=== PATIENT | female | born 1995 | race Two or more races ===

== ENCOUNTER 2017-11-04 10:01 | Emergency (ER) | payer OTHER ==
[~2017-11-04] VITALS: Ht 170.2 cm; Wt 78.9 kg
[2017-11-04] MEDS ORDERED: SODIUM CHLORIDE 0.9% 1000ML 1,000 ML IV STA (10:32)
[2017-11-04] MEDS ORDERED: ONDANSETRON HCL INJ 2 MG/ML VIAL IV STA (10:32)
[2017-11-04] MEDS ORDERED: DONNATAL/LIDOCAINE/MAALOX 30 ML SUSP PO SCH ×2 (10:45→12:45)
[2017-11-04 11:16] LABS: CLARITY,URINE CLEAR (CLEAR); COLOR,URINE YELLOW (YELLOW)
[2017-11-04 11:17] LABS: BILIRUBIN,URINE NEGATIVE (NEGATIVE); KETONES,URINE NEGATIVE (NEGATIVE); LEUKOCYTE ESTERASE ,URINE NEGATIVE (NEGATIVE); NITRITE,URINE NEGATIVE (NEGATIVE); PREGNANCY TEST, URINE NEGATIVE (NEGATIVE); PROTEIN,URINE DIPSTICK NEGATIVE (NEGATIVE); URINE UROBILINOGEN 0.2 mg/dL (0.2 - 1)
[2017-11-04 11:23] LABS: BACTERIA,URINE FEW /HPF; EPITHELIAL CELLS,URINE MODERATE /LPF; RBC,URINE 0-5 /HPF (0-5); WBC,URINE (MAN) 0-5 /HPF (0-5)
--- NOTE | 2017-11-04 11:50 | Diagnostic Imaging Report ---
EXAM: Abdomen 2 Views INDICATION: Abdominal/stomach pain. Rule out small bowel obstruction. COMPARISON: None FINDINGS: No stool in the colon. No dilated loops of small bowel. No free air visualized under the diaphragm. No air-fluid levels. No renal calculi. No abnormal soft tissue masses. No degenerative changes in the lumbar spine and pelvis. IMPRESSION: Unremarkable abdomen. No small bowel obstruction. No constipation. Signed by: Dr. Luisito Otto M.D. on 11/04/2017 11:46 AM
[2017-11-04 12:22] LABS: BASOPHILS % 0.5 % (0.0-1.0); EOSINOPHILS % 0.2 % (0.0-6.0); HEMATOCRIT 37.5 % (34.2-44.1); HEMOGLOBIN 12.9 g/dL (12.0-16.0); LYMPHOCYTES % 23.3 % (18.0-39.1); MEAN CORPUSCULAR HEMOGLOBIN 32.7 pg (28-32); MEAN CORPUSCULAR HGB CONC 34.4 g/dL (31-35); MEAN CORPUSCULAR VOLUME 95.2 fL (81-99); MONOCYTES # (AUTO) 0.8 (0.2-0.8); MONOCYTES % 8.9 % (4.4-11.3); NEUTROPHILS # (AUTO) 5.8 (2.1-6.9); NEUTROPHILS % 66.8 % (38.7-80.0); PLATELET COUNT 261 x10e3/uL (140-360); RED BLOOD COUNT 3.94 x10e6/uL (3.6-5.1); RED CELL DISTRIBUTION WIDTH 12.7 % (11.7-14.4)
[2017-11-04 12:25] LABS: AMPHETAMINES SCREEN,URINE NEGATIVE (NEGATIVE); BENZODIAZEPINES SCREEN,URINE NEGATIVE (NEGATIVE); PHENCYCLIDINE SCREEN,URINE NEGATIVE (NEGATIVE)
[2017-11-04 12:40] LABS: ALANINE AMINOTRANSFERASE 15 IU/L (0-55); ALBUMIN 4.1 g/dL (3.5-5.0); ALBUMIN/GLOBULIN RATIO 1.5 (0.8-2.0); ALKALINE PHOSPHATASE 50 IU/L (40-150); AMYLASE 67 U/L (25-125); ANION GAP 12.8 mmol/L (8-16); BLOOD UREA NITROGEN 6 mg/dL (7-26); BUN/CREATININE RATIO 8 (6-25); CALCIUM 9.6 mg/dL (8.4-10.2); CARBON DIOXIDE 25 mmol/L (22-29); CHLORIDE 107 mmol/L (98-107); CREATININE, SERUM 0.74 mg/dL (0.57-1.11); EST GLOMERULAR FILTRATION RATE > 60 ML/MIN (60-); GLUCOSE 90 mg/dL (74-118); LIPASE 17 U/L (8-78); POTASSIUM 3.8 mmol/L (3.5-5.1); SODIUM 141 mmol/L (136-145)
[2017-11-04] MEDS ORDERED: BELLADONNA ALK/PHENOBARBITAL 5 ML UDC ONE (12:42)
[2017-11-04] MEDS ORDERED: MAGNESIUM/ALUMINUM/SIMETHICONE 30 ML UDC ONE (12:42)
[2017-11-04] MEDS ORDERED: LIDOCAINE VISC 2% SOLN 15 ML UDC ONE (12:43)
== END 2017-11-04 15:11 | disposition home or self-care (01) ==
LOC: ER 10:01
DX: R10.13 Epigastric pain (principal); F14.10 Cocaine abuse, uncomplicated; F12.10 Cannabis abuse, uncomplicated
CPT/HCPCS: 36415; 80053; 80307; 81001; 81025; 82150; 83690; 85025; 99284; J2405; J7030